=== PATIENT | male | born 1995 | race Caucasian/White ===

== ENCOUNTER 2017-08-25 17:30 | Emergency (ER) | payer OTHER ==
[~2017-08-25] VITALS: Ht 182.9 cm; Wt 80.7 kg
[2017-08-25 17:56] VITALS: Ht 182.9 cm; Wt 80.7 kg
[2017-08-25 18:42] LABS: microscopic required? NO
[2017-08-25 18:49] LABS: UA SPECIFIC GRAVITY <=1.005 (1.005-1.035); urine erythrocyte NEGATIVE (NEGATIVE)
[2017-08-25 19:26] LABS: BASOPHIL % 0.3 % (0-2); PLATELET COUNT 219 x10^3mcL (130-400)
[2017-08-25 19:44] LABS: CALCIUM 8.8 mg/dL (8.5-10.1); CARBON DIOXIDE 26.6 mmol/L (21-32); CHLORIDE SERUM 107 mmol/L (98-107); CREATININE SERUM 0.8 mg/dL (0.7-1.3); GFR1 > 60 mL/min; GLUCOSE SERUM 103 mg/dL (74-106); POTASSIUM SERUM 4.1 mmol/L (3.5-5.1); SODIUM SERUM 139 mmol/L (136-145)
[2017-08-25 20:03] LABS: AMPHETAMINE QUAL UR NONE DETECTED (NEG <=1000)
[2017-08-25 20:24] VITALS: BP 141/84
== END 2017-08-25 20:24 | disposition home or self-care (01) ==
LOC: ED 17:30
PROVIDERS: Emergency Medicine
DX: R53.1 Weakness (principal); F41.9 Anxiety disorder, unspecified; R51 Headache; M79.1 Myalgia
CPT/HCPCS: 82962; 83880; J7030

== ENCOUNTER 2017-08-27 20:22 | Emergency (ER) | payer OTHER ==
[~2017-08-27] VITALS: Ht 182.9 cm; Wt 81.6 kg
[2017-08-27 20:37] VITALS: Ht 182.9 cm; Wt 81.6 kg
[2017-08-27 21:46] VITALS: BP 131/72
== END 2017-08-27 21:46 | disposition home or self-care (01) ==
LOC: ED 20:22
DX: R53.1 Weakness (principal); R07.9 Chest pain, unspecified; R00.2 Palpitations
CPT/HCPCS: 82962

== ENCOUNTER 2018-12-02 06:11 | Emergency (ER) | payer OTHER ==
[~2018-12-02] VITALS: Ht 182.9 cm; Wt 72.6 kg
[2018-12-02 06:14] VITALS: Ht 182.9 cm; Wt 72.6 kg
[2018-12-02 06:58] LABS: BASOPHIL % 0.4 % (0-2); PLATELET COUNT 235 x10^3mcL (130-400)
[2018-12-02 07:11] LABS: CALCIUM 9.3 mg/dL (8.5-10.1); CARBON DIOXIDE 28.3 mmol/L (21-32); CHLORIDE SERUM 102 mmol/L (98-107); CREATININE SERUM 0.8 mg/dL (0.7-1.3); GFR1 > 60 mL/min; GLUCOSE SERUM 98 mg/dL (74-106); POTASSIUM SERUM 3.6 mmol/L (3.5-5.1); SODIUM SERUM 141 mmol/L (136-145)
[2018-12-02 07:18] LABS: ALKALINE PHOSPHATASE 70 U/L (46-116); ALT/SGPT 36 U/L (16-63); AST/SGOT 13 U/L (15-37); BILIRUBIN TOTAL 0.4 mg/dL (0.20-1.00); TOTAL PROTEIN, SERUM 7.6 g/dL (6.4-8.2)
[2018-12-02 08:19] VITALS: BP 125/74
== END 2018-12-02 08:19 | disposition home or self-care (01) ==
LOC: ED 06:11
PROVIDERS: Emergency Medicine
DX: R07.89 Other chest pain (principal)
CPT/HCPCS: 36415; J1885; Q0092